=== PATIENT | male | born 1965 | race Caucasian/White ===

== ENCOUNTER 2022-07-20 10:19 | Emergency (ER) | payer OTHER, SELFPAY ==
[2022-07-20 10:30] VITALS: BP 203/99; PULSE 86; RESP 20; TEMP 36.8; O2SAT 100
[2022-07-20 10:40] VITALS: BP 196/94; PULSE 78; O2SAT 98
--- NOTE | 2022-07-20 10:41 | ED.NEUROSD ---
HPI - Neuro Symptoms/Deficit General Chief Complaint: Suspected CVA Stated Complaint: fell/left side/slur words Time Seen by Provider: 07/20/22 10:30 Source: patient, RN notes reviewed, old records reviewed and other (boss) Mode of arrival: ambulatory (shuffly gait) Limitations: no limitations History of Present Illness HPI Narrative: 57 year old male accompanied by boss with some slurring of speech, left sided facial drooping for the past 2 days and some nausea, vomiting and headache. Patient reports that on Sunday he was sitting on toilet got his pants caught in his boot and fell against the bathtub with bruising to his axilla area noted and some tenderness to left rib area. Patient denies hitting his head at time of fall. Patient reports that he has been taking Dramamine for his nausea and has been taking aspirin and Ibuprofen for his headache. His boss brought patient to clinic concerned about noted slurred speech,his gait being abnormal and patient having noted facial droop to the left side of his face.Patient is alert and oriented and able to answer questions. Onset (ago): day(s) (2) On Anticoagulants: No Treatments Prior to Arrival: other (Dramamine, aspirin, Ibuprofen) Related Data Home Medications Medication Instructions Recorded Confirmed No Home Medications 07/20/22 07/20/22 Allergies Allergy/AdvReac Type Severity Reaction Status Date / Time No Known Allergies Allergy Verified 07/20/22 10:35 Review of Systems Review of Systems: CONSTITUTIONAL: Denies fever, chills, or sweats. EYES: Denies visual changes, redness, or discharge. ENT: Denies rhinorrhea, congestion, sore throat, or otalgia. CARDIOVASCULAR: Denies chest pain, palpitations, or edema. RESPIRATORY: Denies cough or dyspnea. GASTROINTESTINAL: Denies abdominal pain, positive for nausea, vomiting, denies diarrhea. GENITOURINARY: Denies dysuria or hematuria. SKIN: Denies rash or itching. MUSCULOSKELETAL: Denies back pain, joint pain, or myalgia. NEUROLOGIC: Positive headache, denies numbness, facial drooping left side, left arm drift note and shuffling gait. PSYCHIATRIC: Denies anxiety or depression. All systems reviewed & are unremarkable except as noted in HPI and below PMFSH Past Medical History Medical History (Updated 04/28/23 @ 10:01 by Quiana Alvarez NP) No significant past medical history Social History Social History (Updated 07/20/22 @ 15:09 by Quiana Alvarez NP) Smoking status: Former smoker Additional smoking assessment comments: quit about 8 years ago Alcohol intake: current Alcohol use details: few drinks every couple of days Substance use type: does not use Living arrangements: alone Gender identity (if verbalized by the patient): Male Comments At time of signature, agree with nursing past medical, surgical, social and family history. There is no relevant family history pertinent to the presenting complaint Exam Narrative: GENERAL:ill-appearing, well-nourished, and in no acute distress. HEAD: Normocephalic, atraumatic.denies any injury to head, denies any LOC EYES: PERRLA and EOMI. ENT: Nares clear, no rhinorrhea or epistaxis. Mucous membranes moist. NECK: Supple. no lymphadenopathy CHEST: Clear to auscultation. No respiratory distress.SAO2 98% on room air, bruising left axilla area and discomfort lateral chest wall on palpation HEART: Regular rate and rhythm. No murmur heard. Normal peripheral pulses, ABDOMEN: Soft, nontender, nondistended, normal active bowel sounds. EXTREMITIES: Normal range of motion to right extremities, Patient has noted decreased handgrip left hand with drift of left arm and facial drooping to left side of face. No edema noted, gait shuffling. Boss from work states that he noted slurring of speech this morning. SKIN: Warm, dry, no rash. NEURO: Alert and oriented x3. weakness to left extremities, slurring speech but comprehensible ,left sided facial drooping, gait shuffling
--- NOTE | 2022-07-20 10:44 | PC.NURSE ---
EMS CALLED AT 1030. ALEXANDER DENNIS RN
== END 2022-07-20 10:50 | disposition short-term general hospital (02) ==
PROVIDERS: Emergency Provider Registered Nurse
DX: I63.9 Cerebral infarction, unspecified (principal); Z87.891 Personal history of nicotine dependence
CPT/HCPCS: 99215; G0463

== ENCOUNTER 2022-08-16 07:46 | Outpatient (CLI) | payer OTHER, SELFPAY ==
[2022-08-16 19:21] LABS: Basophils Percent Auto 0.5 % (0.2-1.2); Eosinophils Absolute Auto 0.1 K/mm3 (0-0.3); Eosinophils Percent Auto 1.2 % (0-4.4); Hematocrit 43.2 % (42.0-52.0); Immature Granulocyte Absolute 0.01 K/mm3 (0.00-0.031); Immature Granulocyte Percent A 0.2 % (0-0.5); Mean Corpuscular HGB Conc 32.4 g/dl (32-36); Mean Corpuscular Hemoglobin 31.4 pg (26-34); Mean Corpuscular Volume 96.9 fl (80-100); Mean Platelet Volume 9.6 fl (7.4-10.4); Monocytes Absolute Auto 0.5 K/mm3 (0.1-0.6); Monocytes Percent Auto 8.6 % (2.6-8.5); Neutrophils Absolute Auto 3.5 K/mm3 (1.3-6.7); Neutrophils Percent Auto 61.5 % (45.5-73.1); Platelet Count Result 170 k/mm3 (150-375); Red Blood Count 4.46 M/mm3 (4.6-6.20); Red Cell Distribution Width 12.5 % (11.5-14.5); White Blood Count 5.7 K/mm3 (4.5-10.0)
[2022-08-16 19:34] LABS: Alanine Aminotransferase 23 U/L (6-50); Albumin Level 4.5 g/dL (3.5-5.1); Alkaline Phosphatase 47 U/L (38-126); Anion Gap 9 mmol/L (8-16); Aspartate Amino Transferase 50 U/L (17-59); Bilirubin,Total 0.8 mg/dL (0.2-1.3); Blood Urea Nitrogen 16 mg/dL (9-20); Calcium 9.5 mg/dL (8.4-10.2); Carbon Dioxide 29 mmol/L (22-30); Chloride 103 mmol/L (98-107); Cholesterol 229 mg/dL (0-200); Estimated Glomerular Filt Rate > 60; Glucose 95 mg/dL (65-110); HDL Direct 44 mg/dL; Potassium 4.2 mmol/L (3.4-5.0); Sodium 141 mmol/L (137-145); Triglycerides 80 mg/dL (<150)
[2022-08-16 19:45] LABS: LDL Cholesterol Direct 156 mg/dL
[2022-08-16 20:04] LABS: Prostate Specific Antigen 0.9 ng/mL (< OR = 4.0)
== END 2022-08-16 07:47 | disposition home or self-care (01) ==
PROVIDERS: PCP Nurse Practitioner; Visit Provider Nurse Practitioner
DX: Z00.00 Encounter for general adult medical examination without abnormal findings (principal); M54.50 Low back pain, unspecified; I10 Essential (primary) hypertension; I63.9 Cerebral infarction, unspecified; Z12.5 Encounter for screening for malignant neoplasm of prostate
CPT/HCPCS: 36415; 80053; 80061; 84153; 85025; G0103